=== PATIENT | female | born 1950 ===

== ENCOUNTER 2021-03-30 13:15 | Inpatient (IN) | payer SELFPAY ==
[2021-03-30] MEDS ORDERED: ACETAMINOPHEN 1000 MG/100 ML BAG IVPB ONE (13:39)
[2021-03-30] MEDS ORDERED: SODIUM CHLORIDE 0.9% 500 ML INFUS.BAG IV ONE (13:39)
[2021-03-30] MEDS ORDERED: ONDANSETRON 4 MG/2 ML VIAL IVPUSH ONE (13:39)
[2021-03-30] MEDS ORDERED: ACETAMINOPHEN INJECTION 100 ML IVPB ONE (13:45)
[2021-03-30] MEDS ORDERED: ONDANSETRON 4 MG/2 ML VIAL ONE (13:45)
[2021-03-30 14:44] LABS: ALBUMIN 4.7 g/dl (3.4-5.0); BILIRUBIN,TOTAL 0.8 mg/dl (0.2-1); CALCIUM 10.2 mg/dl (8.5-10); CREATININE 0.7 mg/dl (0.55-1.3); TOT PROT 7.9 g/dl (6.4-8.2)
[2021-03-30] MEDS ORDERED: FAMOTIDINE 20 MG/50 ML IVPB 20 MG in PREMIX 50 IVPB ONE (14:47)
[2021-03-30] MEDS ORDERED: FAMOTIDINE 20 MG/50 ML IVPB 20 MG/50 ML MG IVPB ONE (14:48)
[2021-03-30] MEDS ORDERED: ASPIRIN 81 MG CHEWABLE TABLETS PO ONE (14:56)
[2021-03-30] MEDS ORDERED: ASPIRIN 81 MG CHEWABLE TABLETS ONE (14:58)
[2021-03-30 15:10] LABS: BASO % 0.5 % (0-2.0); HEMATOCRIT 38.4 % (32.4-45.2); HEMOGLOBIN 12.5 GM/dL (10.7-15.3); LYMPH % 5.4 % (8-40); MCH 27.8 pg (25.7-33.7); MCHC 32.5 g/dl (32.0-36.0); MEAN CELL VOLUME 85.5 fl (80-96); MEAN PLT VOLUME 9.6 fl (7.5-11.1); MONO % 2.6 % (3.8-10.2); NEUT % 91.5 % (42.8-82.8); PLATELET COUNT 267 10^3/uL (134-434); RBC 4.49 M/mm3 (3.60-5.2); RDW 13.6 % (11.6-15.6); WHITE BLOOD COUNT 11.7 K/mm3 (4.0-10.0)
[2021-03-30 15:17] LABS: INR 1.14 (0.83-1.09); PROTHROMBIN TIME (PATIENT) 12.6 SEC (9.7-13.0)
[2021-03-30] MEDS ORDERED: CLOPIDOGREL BISULFATE 300 MG TABLET PO ONE (15:19)
[2021-03-30] MEDS ORDERED: ENOXAPARIN NA (PORCINE) 80 MG/0.8 ML DISP.SYRIN SQ ONE (15:19)
[2021-03-30] MEDS ORDERED: ENOXAPARIN NA (PORCINE) 100 MG/1 ML DISP.SYRIN SQ ONE (15:23)
[2021-03-30] MEDS ORDERED: CLOPIDOGREL BISULFATE 300 MG TABLET ONE (15:23)
[2021-03-30 15:30] LABS: LACTIC ACID 2.3 mmol/L (0.4-2.0)
[2021-03-30 15:53] LABS: ANISOCYTOSIS 0; HELMET CELLS 0; HOWELL-JOLLY BODIES 0; MACROCYTOSIS 0; OVALOCYTE 0; PLATELET ESTIMATE NORMAL; ROULEAU 0; SICKELED CELLS 0; TARGET CELLS 0; TEAR DROP CELLS 0; TOXIC GRANULATION 0
[2021-03-30] MEDS ORDERED: POLYETHYLENE GLYCOL (HEALTHYLAX) 3350 17 GM PACKET PO PRN ×2 (19:43→21:17)
[2021-03-30] MEDS ORDERED: ACETAMINOPHEN 325 MG TABLET (FP) PO PRN ×2 (19:43→21:10)
[2021-03-30] MEDS ORDERED: ACETAMINOPHEN 325 MG TABLET (FP) ONE (21:00)
[2021-03-30] MEDS ORDERED: ATORVASTATIN CA 80 MG TABLET (FP) PO ONE (21:22)
[2021-03-30] MEDS ORDERED: ATORVASTATIN CA 80 MG TABLET (FP) ONE (21:30)
[2021-03-30] MEDS ORDERED: TRIMETHOBENZAMIDE HCL 200MG/2ML INJ IM PRN (21:41)
[2021-03-30] MEDS ORDERED: ATORVASTATIN CA 80 MG TABLET (FP) PO SCH (22:00)
[2021-03-30 23:16] VITALS: BMI 27.8
[2021-03-31] MEDS ORDERED: DOCUSATE SODIUM 100 MG CAPSULE (FP) PO ONE (00:18)
[2021-03-31] MEDS ORDERED: METOPROLOL TARTRATE 5 MG/5 ML VIAL IVPUSH ONE ×2 (00:20→02:15)
[2021-03-31] MEDS ORDERED: NITROGLYCERIN SUBLINGUAL 1/150 0.4 MG TAB SL PRN (00:34)
[2021-03-31] MEDS: ENOXAPARIN NA (PORCINE) 80 MG/0.8 ML DISP.SYRIN SQ SCH ×3 (02:29→21:51)
[2021-03-31] MEDS ORDERED: METOPROLOL TARTRATE 5 MG/5 ML VIAL IVPUSH PRN (06:00)
[2021-03-31] MEDS ORDERED: CLOPIDOGREL BISULFATE 75 MG TABLET (FP) PO SCH (10:00)
[2021-03-31] MEDS ORDERED: ASPIRIN 325 MG TABLET PO SCH (10:00)
[2021-03-31] MEDS ORDERED: PANTOPRAZOLE 20 MG TABLET PO SCH (10:00)
[2021-03-31] MEDS ORDERED: ASPIRIN 81 MG CHEWABLE TABLETS PO SCH (10:00)
[2021-03-31 10:58] LABS: BASO % 0.5 % (0-2.0); HEMATOCRIT 37.2 % (32.4-45.2); HEMOGLOBIN 12.2 GM/dL (10.7-15.3); LYMPH % 9.2 % (8-40); MCH 28.1 pg (25.7-33.7); MCHC 32.8 g/dl (32.0-36.0); MEAN CELL VOLUME 85.7 fl (80-96); MEAN PLT VOLUME 9.3 fl (7.5-11.1); MONO % 6.7 % (3.8-10.2); NEUT % 83.6 % (42.8-82.8); PLATELET COUNT 288 10^3/uL (134-434); RBC 4.34 M/mm3 (3.60-5.2); RDW 13.8 % (11.6-15.6); WHITE BLOOD COUNT 11.9 K/mm3 (4.0-10.0)
[2021-03-31 11:28] LABS: CALCIUM 9.6 mg/dL (8.5-10.1)
[2021-03-31 11:29] LABS: BLOOD UREA NITROGEN 11.4 mg/dL (7-18)
[2021-03-31 11:32] LABS: CREATININE 0.7 mg/dL (0.55-1.3)
[2021-03-31] MEDS: INSULIN SLIDING SCALE (NOVOLOG) 1 VIAL SQ SCH ×2 (17:34→21:47)
[2021-03-31] MEDS ORDERED: ATORVASTATIN CA 80 MG TABLET (FP) PO SCH (22:00)
[2021-04-01] MEDS: INSULIN SLIDING SCALE (NOVOLOG) 1 VIAL SQ SCH (06:37)
[2021-04-01] MEDS ORDERED: INSULIN (LEVEMIR) 100 UNITS/ML UNITS SQ ONE (07:01)
[2021-04-01 10:19] VITALS: BP 124/51; PULSE 98; TEMP 98
== END 2021-04-01 10:00 | disposition short-term general hospital (02) | DRG 190 ==
LOC: FER 13:15 → J4S 22:17
PROVIDERS: ADMIT Internal Medicine
DX: I21.4 Non-ST elevation (NSTEMI) myocardial infarction (principal); E11.9 Type 2 diabetes mellitus without complications
CPT/HCPCS: 36415; 71045-TC-FY; 80048; 80053; 82550; 82553; 82962; 83036; 83605; 83735; 84484; 85025; 85610; 85730; 93005; 93010; 93306-TC; 99285-25; C9803; J0131; U0003; U0005